=== PATIENT | male | born 1975 | race Caucasian/White ===

== ENCOUNTER 2023-03-08 22:05 | Emergency (ER) | payer MEDICARE, BC ==
[~2023-03-08] VITALS: Ht 180.3 cm; Wt 77.1 kg
--- NOTE | 2023-03-08 22:20 | NUR ---
Patient BIB [facility] for syncope. Per report from rescue, patient was found by his daughter laying down on the floor, and pale after a syncopal episode. Patient arrived to ER with GCS 15, 100% on RA, c/o dizziness.
[2023-03-08 22:24] LABS: HEMATOCRIT 47.3 % (36.7-47.1); MEAN CORPUSCULAR HEMOGLOBIN 30.1 uug (23.8-33.4); MEAN CORPUSCULAR VOLUME 91.7 fL (73.0-96.2); PLATELET COUNT (AUTO) 298 K/uL (152-348)
[2023-03-08] MEDS ORDERED: ONDANSETRON 4 MG/2 ML VIAL ONE (22:26)
[2023-03-08 22:30] LABS: CARBON DIOXIDE 30 mmol/L (21-32); CHLORIDE 104 mmol/L (98-107); GLUCOSE 109 mg/dL (74-106); POTASSIUM 2.9 mmol/L (3.5-5.1); UREA NITROGEN, BLOOD 8 mg/dL (7-18)
[2023-03-08] MEDS ORDERED: IV NORMAL SALINE 1000 ML BAG IV ONE (22:30)
[2023-03-08] MEDS ORDERED: ONDANSETRON 4 MG/2 ML VIAL IV ONE (22:30)
--- NOTE | 2023-03-08 22:30 | NUR ---
Patient's SBP in 180s. notified.
[2023-03-08 22:42] LABS: ALANINE AMINOTRANSFERASE 29 U/L (16-63); ALKALINE PHOSPHATASE 113 U/L (50-136); ASPARTATE AMINOTRANSFERASE 21 U/L (15-37); BILIRUBIN,DIRECT 0.1 mg/dL (0.0-0.2); BILIRUBIN,TOTAL 0.5 mg/dL (0.2-1.0); TOTAL PROTEIN, SERUM 7.6 g/dL (6.4-8.2)
[2023-03-08] MEDS ORDERED: POTASSIUM CHLORIDE 20 MEQ TAB.PRT.SR ONE (23:29)
[2023-03-08] MEDS ORDERED: POTASSIUM CHLORIDE 20 MEQ TAB.PRT.SR PO ONE (23:30)
--- NOTE | 2023-03-08 23:40 | NUR ---
Patient discharged to home in stable condition. Written and verbal after care instructions given. Patient verbalizes understanding of instructions. Stressed follow up or return to ER for worsening s/s. All belongings with patient.
[2023-03-08 23:43] VITALS: BP 152/69
== END 2023-03-08 23:40 | disposition home or self-care (01) ==
LOC: ER 22:05
DX: R55 Syncope and collapse (principal); I10 Essential (primary) hypertension; H91.3 Deaf nonspeaking, not elsewhere classified; E78.5 Hyperlipidemia, unspecified; F17.210 Nicotine dependence, cigarettes, uncomplicated; Z71.6 Tobacco abuse counseling
CPT/HCPCS: 99285; 96374; 70450; 96361; 99406; 80076; 80048; 85025; 84484; 36415; 93005; J2405; J7040; A4663